=== PATIENT | female | born 1955 | race Caucasian/White ===

== ENCOUNTER → 2020-08-19 | Outpatient (CLI) | payer OTHER, MEDICARE ==
[2020-08-19 10:59] LABS: CREATININE 0.7 mg/dL (0.6-1.0)
== END ==
LOC: MRI 08:26
PROVIDERS: ATTEND Surgery
DX: N63.11 Unspecified lump in the right breast, upper outer quadrant (principal); R92.8 Other abnormal and inconclusive findings on diagnostic imaging of breast

== ENCOUNTER → 2020-08-24 | Outpatient (CLI) | payer OTHER ==
[~2020-08-24] MED LIST: HYDROCODON-ACE1 EAC7 PO; RESTASIS1 EACH OPHTHALMIC; VALTREX 500 MG500 M1 PO; VITAMIN D325 MC5 PO; XANAX 0.5 MG0.5 M1 PO
--- NOTE | 2020-08-30 18:06 | PATH ---
[facility] [place] [address] PATHOLOGY RPT PROCEDURE Name: SKYLAR MOORE Room #: REG ARNOL Monson.#: [id number] Admission: 08/24/20 Date of : 51 Discharge: Report #: [id number] Path Case #: [id number] [facility] Accession Number: [id number] . 01 Material submitted: . PART A: breast - RIGHT UPPER OUTER MASS BREAST. Modifiers: right, upper, outer PART B: axilla - RIGHT AXILLA. Modifiers: right . 01 Clinical history: . Right upper outer breast mass. . 02 Diagnosis: A. Breast tissue, right upper outer mass, needle biopsy: - Invasive ductal carcinoma with lobular features, histologic grade II (see comment). . B. Lymph node, axilla, needle biopsy: - Negative for metastatic carcinoma (see comment). (SCA:ade; 08/27/2020) S 08/27/2020 0918 Local . 02 Comment: Surgical Pathology Cancer Case Summary . Protocol posting date: May 2019 . INVASIVE CARCINOMA OF THE BREAST: Biopsy . Procedure ___ Needle biopsy . Specimen Laterality ___ Right . Tumor Site ___ Upper outer quadrant . Tumor Size ___ Greatest dimension of largest invasive focus >1 mm: at least 9 mm . Histologic Type ___ Invasive carcinoma of no special type (ductal), with lobular features . Histologic Grade (Vahe Histologic Score) . Glandular (Acinar)/Tubular Differentiation [address] [address] PATHOLOGY RPT PROCEDURE Name: ANGELIKASKYLAR LOU Room #: REG ARNOL Doherty#: [id number] Admission: 08/24/20 Date of : 51 Discharge: Report #: [id number] Path Case #: [id number] ___ Score 3 (<10% of tumor area forming glandular/tubular structures) . Nuclear Pleomorphism ___ Score 2 (cells larger than normal with open vesicular nuclei, visible nucleoli, and moderate variability in both size and shape) . Mitotic Rate ___ Score 1 . Overall Grade ___ Grade 2 (scores of 6 or 7) . Ductal Carcinoma In Situ (DCIS) ___ Not identified . Lymphovascular Invasion ___ Not identified . Microcalcifications ___ Not identified . Ancillary Studies . Biomarker Studies ___ Pending; results will be reported as an addendum . Comments: Immunohistochemical stains performed on block A1 reveal the tumor cells are positive for E-cadherin supporting the diagnosis of invasive ductal carcinoma. Immunohistochemical stain AE1/AE3 was performed on blocks B1 and B2, and are negative for metastatic carcinoma. . The results were communicated to Dr. Jordy Simmons on 08/26/2020 at 2:55 p.m. . This case was co-reviewed by Dr. Reyna Prieto on 08/27/2020, who agrees with the above diagnosis. (SCA:ade; 08/27/2020) . 02 Electronically signed: . Sai Braden DO, Pathologist NPI- [id number] . 01 Gross description: . A. The specimen is received in formalin, labeled "Skylar Moore, right upper outer breast". Received are multiple needle cores of fibrofatty tissue measuring 1.8 x 0.8 x 0.2 cm in aggregate dimensions. The specimen is submitted entirely in cassettes A1 through A3. The cold ischemic time is 5 minutes. The total formalin fixation time is 26 hours and [address] [address] PATHOLOGY RPT PROCEDURE Name: SKYLAR MOORE Room #: REG CLI [facility].#: [id number] Admission: 08/24/20 Date of : 51 Discharge: Report #: [id number] Path Case #: [id number] minutes. . B. The specimen is received in formalin, labeled "Skylar Moore, right axilla". Received are two needle cores of pale banegas tissue measuring 0.7 and 0.8 cm in length, with each measuring 0.1 cm in diameter. The specimen is submitted entirely in cassettes B1 and B2. (CAA; 08/25/2020) QAC/QAC 08/25/2020 1323 Local . 02 Microscopic: . . . 02 Pathologist provided ICD-10: C50.911 . 02 CPT . 591909, 643857, E51643 Specimen Comment: A courtesy copy of this report has been sent to [phone], [phone] Specimen Comment: [phone] Specimen Comment: Report sent to / DR SIMMONS Specimen Comment: A duplicate report has been generated due to demographic updates. Performed at: 01 [facility] [address] [id number] MD Jesús Sanchez MD Phone: [phone] Performed at: 02 [facility] [address] [id number] MD Bunny Rajan MD Phone: [phone]
== END | disposition home or self-care (01) ==
LOC: ULTRA 12:51
PROVIDERS: ATTEND Surgery
DX: C50.411 Malignant neoplasm of upper-outer quadrant of right female breast (principal); R59.0 Localized enlarged lymph nodes; Z88.2 Allergy status to sulfonamides

== ENCOUNTER 2020-09-10 07:35 | Observation (INO) | payer OTHER, MEDICARE ==
[~2020-09-10] VITALS: Ht 165.1 cm; Wt 55.3 kg
[~2020-09-10 07:35] MED LIST changes: -HYDROCODON-ACE1 EAC7 PO
[2020-09-10 09:01] VITALS: BP 113/66
--- NOTE | 2020-09-10 09:22 | EKG ---
[facility] [place] [place] [address] ELECTROCARDIOGRAM REPORT Name: SKYLAR CARNEY Room #: REG [facility]#: [id number] Admission: 09/10/20 Attend Phys: Jordy Rivers MD Discharge: Date of : 51 Report #: [id number] [facility] Test Date: 2020-09-10 Test Time: 08:40:05 Pat Name: SKYLAR CARNEY Department: Room: Gender: F Delicatessen Manager: : 1955 Requested By: Jordy Rivers Order Number: [id number] : Simeon Dietz Measurements Intervals [place] Rate: 68 P: -24 OK: 107 QRS: 45 QRSD: 94 T: 44 QT: 398 QTc: 424 Interpretive Statements Sinus rhythm Short OK interval Baseline wander in lead(s) V6 No previous ECG available for comparison Electronically Signed On 09-10-2020 9:21:52 CDT by Simeon Dietz [email or web address] <ELECTRONICALLY SIGNED> By: Simeon Dietz MD, [facility] 09/10/20920 0840 0840 Simeon Dietz MD, FACC /EPI
--- NOTE | 2020-09-10 17:46 | NUR ---
ASSUMED CARE FOR PT XFERRED FROM OR/PACU FOR RIGHT MASTECTOMY. PT HAS MANINDER DRAINSX2, BANDAGE AND WRAPPING AROUND RIGHT BREAST C/D/I. PT IS A/OX4, C/O PAIN ON THE RIGHT CHEST AREA. PT DID HAVE CONCERNS ABOUT BODY IMAGE AFTER THE SURGERY. SKIN W/D/ATR, CR<3SECX4 WITH PRESENT DISTAL PULSES, NO TENTING. VSS, ASSESSMENTS OTHERWISE UNREMARKABLE. IV IN RIGHT FA WITH D5.45WITH 20MeQ K+ @80ML/HR. CALL LIGHT AND OTHER NEEDS ARE PLACED WITHIN REACH. MEDS AND ADMISSIONS INTERVENTIONS COMPLETED. MEDS AND TX GIVEN SCHEDULED AND NEEDED.
[2020-09-10 20:00] VITALS: BP 87/47
[2020-09-10 23:20] VITALS: BP 93/49
[2020-09-11 05:30] VITALS: BP 88/43
--- NOTE | 2020-09-11 07:43 | NUR ---
RECEIVED CARE OF THIS PATIENT AT 1099. PATIENT ALERT AND ORIENTED X4. UP TO BATHROOM WITH ASSIST OF ONE. DRESSING ON R BREAST D/I. C/O PAIN X1, MED GIVEN. MANINDER X2 ON R BREAST.IV PATENT WITH FLUIDS INFUSING. HAS DRESSING ON L HIP, D/I. SLEPT MOST OF NIGHT.
[2020-09-11 08:56] VITALS: BP 118/72
--- NOTE | 2020-09-11 13:50 | O ---
[facility] [place] [address] [address] [place] [address] OPERATIVE REPORT Name: SKYLAR CARNEY Room #: 438-P [facility] M.R.#: [id number] Admission: 09/10/20 Attend Phys: Jordy Rivers MD Discharge: Date of : 51 Report #: [id number] THIS REPORT FOR: cc: Alex Ahmadi MD, Michael J. MD Chu,Jordy Kline MD ~ DOC #: [id number] cc: Alex Ahmadi MD, MD Jordy Huston MD DATE OF SERVICE: 09/10/2020 PREOPERATIVE DIAGNOSIS: Recently diagnosed large left breast cancer with a suspicious lymph node; however, biopsy of the lymph node was negative. POSTOPERATIVE DIAGNOSIS: Large right breast cancer, invasive ductal carcinoma with lobular features, estrogen positive. [place] node positive. Hormone pellet in the left hip area. PROCEDURE PERFORMED: 1. Left mastectomy, sentinel node biopsy followed by completion axillary dissection. 2. Removal of hormone pellet in the left hip with ultrasound guidance. SURGEON: Jordy Rivers MD. TYPE OF ANESTHESIA: General anesthesia. ESTIMATED BLOOD LOSS: 50 mL SPECIMENS: None. DESCRIPTION OF PROCEDURE: The patient's left breast is prepped and draped in sterile fashion including the axilla. IV antibiotic was administered. Timeout was performed. The patient had a large sized tumor, mostly in the outer aspect of the breast. No skin changes. No skin involvement that can be detected. No chest wall involvement. Ellipse was drawn around the tumor. A fairly generous skin removal was performed because of the large size of the tumor. The skin that was left was felt to be able to come together without much tension. Superior skin flap was made. Cautery was used for hemostasis. The patient's breasts are pretty small. Dissection was carried out over the breast down to the pectoralis fascia. This was then carried out medially to the sternum. Inferior skin incision was then made. Cautery was used to obtain hemostasis. Multiple clips were used also. The breast was then taken off the chest wall without difficulty. Again, clips were applied for hemostasis. The breast was removed without difficulty after it was divided the axilla. Short stitch was [facility] [address] [place] [address] OPERATIVE REPORT Name: SKYLAR CARNEYTH Room #: 438-P [facility]les Doherty#: [id number] Admission: 09/10/20 Attend Phys: Jordy Rivers MD Discharge: Date of : 51 Report #: [id number] placed superiorly, a long stitch was placed laterally for orientation for the pathologist. The area of sentinel node was identified using the Neoprobe. The lymph node that was encountered initially was fairly firm, kind of suspicious. This and another lymph nodes were removed and set aside. The axilla still had a lymph node activity. The lymph node was finally identified. The first two nodes were sent in for analysis because of their suspicious palpable nature. The lymph nodes not enlarged. They were 5-6 mm. These nodes were positive on frozen section and the node is essentially replaced by tumor. During the mastectomy, there was no involvement of the chest wall. Axillary dissection was then carried out. The high axillary node was freed. This was divided from the lateral aspect of the pectoralis vascular bundle. The long thoracic and the thoracodorsal nerve was identified and preserved. The lymph node was swept down from this area. The patient did have multiple lymph nodes grossly that is difficult to tell if they were involved. Completion axillary dissection was performed. There was no significant residual lymph node in the axilla. Hemostasis was checked and obtained. Two #19 Ramesh drains was left. The medial drain was placed on the skin under the mastectomy flap and the lateral drain was placed in the axilla. Drain sutured to the skin with 2-0 silk suture. The subcutaneous tissues of the mastectomy skin flap was closed with 3-0 Vicryl. Skin was closed with 4-0 PDS running subcuticular fashion. Dermabond was applied. Fluffy gauze, ABD and tape were applied. The patient was then placed with a left hip tilted up. Preoperatively, I could see where the hormone pellet was located on ultrasound. This area was prepped and draped in sterile fashion. The skin was anesthetized with 0.25% Marcaine. A small ellipse of skin was removed. Dissection was then carried down into the subcutaneous tissue. On ultrasound, this appeared to be in the deep part of the subcutaneous tissue. Dissection was then performed down deeper and just above the fascia, at which point, I can tell where the pellet was located. The pellet was removed along with the surrounding fatty tissue. Pellet was intact. Specimen was sent to pathology. This was irrigated. Subcu was closed with 4-0 PDS. Skin was closed with 5-0 PDS running subcuticular fashion. Steri-Strips, 4 x 4, Op-Site was applied. The patient tolerated the procedure well. MD TESSIE Houser/ISREAL <ELECTRONICALLY SIGNED> By: Jordy Rivers MD 09/11/20 1350 2035 2100 Jordy Rivers MD /ben
[2020-09-11] MEDS ORDERED: HYDROCODON-ACE1 EAC7 PO (14:14)
[2020-09-11 14:44] VITALS: BP 118/72
--- NOTE | 2020-09-11 16:40 | NUR ---
PT ASSESSED AT START OF SHIFT. DOING WELL. NO C/O PAIN. DR. SIMMONS IN THIS AFTERNOON TO SEE AND DISCHARGE PT. MANINDER DRAIN TEACHING DONE. HOME HEALTH ARRANGED W/ [facility] AND ORDERS AND DISCHARGE SUMMARY SENT. NUMBER GIVEN TO PT IF SHE HASN'T HEARD FROM THEM BY Sunday. PT DISCHARGED PER W/C W/ ALL BELONGINGS. F/U W/ DR. SIMMONS PER OFFICE APPT.
== END 2020-09-11 16:42 | disposition home health service (06) ==
LOC: OR 07:35 → NUC 09:05 → OR 12:19 → 4S 16:04 → OR 20:32 → 4S 20:34
PROVIDERS: ADMIT Surgery; ATTEND Surgery
DX: D05.11 Intraductal carcinoma in situ of right breast (principal); Z79.890 Hormone replacement therapy; Z79.899 Other long term (current) drug therapy
CPT/HCPCS: 50010; 50101; 50386; 50417; 51301; 54118; 56524; 56525; 56526; 62110; 62900; 70005

== ENCOUNTER 2020-10-19 10:12 | Day surgery (SDC) | payer OTHER, MEDICARE ==
[~2020-10-19] VITALS: Ht 165.1 cm; Wt 52.2 kg
--- NOTE | ~2020-10-19 | O ---
[facility] [place] [address] [address] [place] [address] OPERATIVE REPORT Name: SKYLAR CARNEY Room #: DEP [facility] M..#: [id number] Admission: 10/19/20 Attend Phys: Jordy Rivers MD Discharge: 10/19/20 Date of : 51 Report #: [id number] THIS REPORT FOR: cc: Alex Ahmadi MD, Michael J. MD Chu, Peter Y. MD ~ DOC #: [id number] Jordy Rivers MD DATE OF SERVICE: 10/19/2020 PREOPERATIVE DIAGNOSIS: Recently diagnosed right breast cancer, needing chemotherapy, here for Port-A-Cath placement. POSTOPERATIVE DIAGNOSIS: Recently diagnosed right breast cancer, needing chemotherapy, here for Port-A-Cath placement. PROCEDURE PERFORMED: Port-A-Cath placement via left subclavian approach. SURGEON: Jordy Rivers MD COMPLICATIONS: None. ESTIMATED BLOOD LOSS: 5 mL. ANESTHESIA: General. DESCRIPTION OF PROCEDURE: With the patient under general anesthesia, the left chest and neck was prepped and draped in sterile fashion. Preoperative IV antibiotic was administered. Timeout was performed. 0.25% Marcaine was used to anesthetize the skin underneath the left clavicle. A 2.5 cm incision was made below the clavicle. This was carried down to the fascia over the pectoralis muscle. The space was dissected along the pectoralis fascia going inferiorly. Pocket was made. The port was placed in the pocket and seated well. The port was then flushed with antibiotic irrigation. The patient was then placed in the Trendelenburg position, the subclavian vein was found using Seldinger technique on the first pass. Wire was placed through the needle without resistance. On fluoroscopy, the wire was in the good position heading down towards the superior vena cava. The distance of the catheter was then measured out to about 17 cm. This was fitted to the catheter, was then fitted to the port. Special locking device was used to lock the catheter to the port. The port and the catheter was then flushed with heparinized saline solution. A dilator was then placed over the wire, and the peel-apart sheath was placed over the dilator; this was then placed over the wire. Dilator and wire was removed. The catheter was then placed inside the peel-apart sheath. The catheter was easily advanced. The sheath was peeled apart leaving the catheter in the vein. The port was then placed in the port site. Irrigation was performed. On the fluoroscopy, the [facility] [address] [place] [address] OPERATIVE REPORT Name: SKYLAR CARNEYZABETH Room #: DEP [facility]#: [id number] Admission: 10/19/20 Attend Phys: Jordy Rivers MD Discharge: 10/19/20 Date of : 51 Report #: [id number] catheter was in a good position. No kinking of the catheter identified. The port was then sutured to the fascia with 2-0 Prolene suture in the 2 sites that was made for the port. Antibiotic irrigation was performed. The subcutaneous tissue on the incision was closed with 3-0 PDS. Skin was closed with 5-0 PDS. Steri-Strips applied. The port was then accessed with a Pruett needle without difficulty. Good blood return was identified. The port was then flushed with heparinized saline. The dressing was then placed over this area. The patient was taken to recovery room in good condition. Chest x-ray is pending in recovery room. MD TESSIE Houser/EFREN By: 48 08 Jordy Rivers MD /nt
[~2020-10-19 10:12] MED LIST changes: +HYDROCODON-ACE1 EAC7 PO; +PEPCID AC10 MG PO; +VITAMIN B-12 IM
[2020-10-19 12:08] VITALS: BP 116/68
[2020-10-19] MEDS ORDERED: HYDROCODON-ACE1 EAC7 PO (14:01)
[2020-10-19 14:17] VITALS: BP 116/68
== END 2020-10-19 15:05 | disposition home or self-care (01) ==
LOC: TBA 10:12 → OR 10:12 → TBA 10:13 → OR 12:51
PROVIDERS: ATTEND Surgery
DX: Z45.2 Encounter for adjustment and management of vascular access device (principal); C50.911 Malignant neoplasm of unspecified site of right female breast; F41.9 Anxiety disorder, unspecified; Z98.890 Other specified postprocedural states; Z79.899 Other long term (current) drug therapy; Z90.710 Acquired absence of both cervix and uterus; Z98.51 Tubal ligation status; Z88.2 Allergy status to sulfonamides; Z88.8 Allergy status to other drugs, medicaments and biological substances
CPT/HCPCS: 50010; 50101; 50386; 50403; 51938; 56524; 56525; 62110; 62900; 70005

== ENCOUNTER → 2021-04-01 | Day surgery (SDC) | payer OTHER, MEDICARE ==
[~2021-04-01] VITALS: Ht 165.1 cm; Wt 54.4 kg
[2021-04-01 09:06] VITALS: BP 102/45
[2021-04-01 11:39] VITALS: BP 102/45
--- NOTE | 2021-04-04 18:24 | O ---
[facility] [address] OPERATIVE REPORT Name: SKYLAR CARNEY Room #: REG [facility] M.R.#: [id number] Admission: 04/01/21 Attend Phys: Jordy Rivers MD Discharge: Date of : 51 Report #: [id number] THIS REPORT FOR: cc: Alex Ahmadi MD, Michael J. MD Chu,Jordy Kline MD ~ DATE OF SERVICE: 04/01/2021 PREOPERATIVE DIAGNOSES: Right breast cancer history, status post chemotherapy, here for Port-A-Cath removal. POSTOPERATIVE DIAGNOSES: Right breast cancer history, status post chemotherapy, here for Port-A-Cath removal. PROCEDURE PERFORMED: Removal of left chest Port-A-Cath. SURGEON: Jordy Rivers MD ANESTHESIA: IV sedation. Local 0.2% Marcaine. COMPLICATIONS: None. ESTIMATED BLOOD LOSS: 5 mL. PROCEDURE NOTE: With the patient under IV sedation, the left chest was prepped and draped in sterile fashion. Timeout was performed. Then, 0.25% Marcaine was used to anesthetize the skin. Her old incision was utilized. After incising through the skin and subcutaneous tissue, the catheter was found. Catheter itself was free from the surrounding scar tissue. The catheter was then removed from proximally and the catheter was removed from the subclavian vein. No bleeding was encountered. Pressure was held over this area. Catheter came out in total. The port was then dissected free. Local anesthetic was placed around the port. The muscle, which was somewhat scarred to the port, was dissected free. The capsule surrounding the port was removed. There was some oozing, which was controlled with a 4-0 PDS suture. Small chest wall bleeder was cauterized. Irrigation was performed. No bleeding was identified. The subcutaneous tissue was brought together with 4-0 PDS. Skin was closed with 5-0 PDS running subcuticular fashion. Mastisol, Steri-Strips, Telfa Op-Site used for dressing. The patient tolerated the procedure well. <ELECTRONICALLY SIGNED> By: Jordy Rivers MD 04/04/21 1824 1250 1304 Jordy Rivers MD /nt
== END | disposition home or self-care (01) ==
LOC: OR 07:29
PROVIDERS: ATTEND Surgery
DX: Z45.2 Encounter for adjustment and management of vascular access device (principal); Z85.3 Personal history of malignant neoplasm of breast; K21.9 Gastro-esophageal reflux disease without esophagitis; Z98.890 Other specified postprocedural states; Z79.899 Other long term (current) drug therapy; Z20.822 Contact with and (suspected) exposure to COVID-19; Z90.710 Acquired absence of both cervix and uterus; Z98.51 Tubal ligation status; Z88.2 Allergy status to sulfonamides
CPT/HCPCS: 50010; 50101; 50386; 50403; 56525; 56526; 62110; 62850; 70005